=== PATIENT | male | born 2000 | race Caucasian/White ===

== ENCOUNTER 2019-01-19 18:41 | Emergency (ER) | payer BC ==
[~2019-01-19] VITALS: Ht 175.3 cm; Wt 65.8 kg
[2019-01-19 18:55] VITALS: BP 109/47
--- NOTE | 2019-01-19 18:59 | PHYS DOC ---
Past History Past Medical History: No Pertinent History Past Surgical History: No Surgical History Smoking: Non-smoker Alcohol Use: None Drug Use: None Adult General Chief Complaint Chief Complaint: BACK PAIN OR INJURY HPI HPI Patient is a 18-year-old male presents complaining of right-sided back pain that started when he woke up this morning. Increased pain with movement. Patient was given Azo by his girlfriend with no improvement in the pain. No loss of bowel or bladder control. The urine did turn the expected orange a shred collar after being administered the Azo. There was no blood in the urine before hand. No pain with urination. No fever. No nausea or vomiting. Pain is moderate in intensity.[] Review of Systems Review of Systems Constitutional: Denies fever or chills [] Eyes: Denies change in visual acuity, redness, or eye pain [] HENT: Denies nasal congestion or sore throat [] Respiratory: Denies cough or shortness of breath [] Cardiovascular: No chest pain or palpitations[] GI: Denies abdominal pain, nausea, vomiting, bloody stools or diarrhea [] : Denies dysuria or hematuria [] Musculoskeletal: See history of present illness[] Integument: Denies rash or skin lesions [] Neurologic: Denies headache, focal weakness or sensory changes [] Endocrine: Denies polyuria or polydipsia [] All other systems were reviewed and found to be within normal limits, except as documented in this note. Physical Exam Physical Exam Constitutional: Well developed, well nourished, no acute distress, non-toxic ap pearance. [] HENT: Normocephalic, atraumatic, bilateral external ears normal, oropharynx moist, no oral exudates, nose normal. [] Eyes: PERRLA, EOMI, conjunctiva normal, no discharge. [] Neck: Normal range of motion, no tenderness, supple, no stridor. [] Cardiovascular:Heart rate regular rhythm, no murmur [] Lungs & Thorax: Bilateral breath sounds clear to auscultation [] Abdomen: Bowel sounds normal, soft, no tenderness, no masses, no pulsatile masses. [] Skin: Warm, dry, no erythema, no rash. [] Back: Tenderness to palpation over the left-sided paraspinal musculature. No midline tenderness. No step-off or crepitus. Full active range of motion. Normal gait. No CVA tenderness. [] Extremities: No tenderness, no cyanosis, no clubbing, ROM intact, no edema. [] Neurologic: Alert and oriented X 3, normal motor function, normal sensory function, no focal deficits noted. [] Psychologic: Affect normal, judgement normal, mood normal. [] EKG EKG [] Radiology/Procedures Radiology/Procedures [] Course & Med Decision Making Course & Med Decision Making Pertinent Labs and Imaging studies reviewed. (See chart for details) ED course: Patient arrived, was placed in bed, and tolerated exam well. He was not writhing around at any point during his emergency department stay like this was a kidney stone. He did get relief with the Toradol. Findings and plan were discussed with the patient voiced understanding. All questions were answered. He was discharged in improved condition. Medical decision making: Given the paucity of red cells in the urine, physical exam findings, and lack of improvement with Azo, do not believe this to be a kidney stone. Her is no evidence of pyelonephritis. We will treat for m usculoskeletal back pain. Imaging is not indicated at this time utilizing the choosing wisely guidelines.[] Dragon Disclaimer Dragon Disclaimer This electronic medical record was generated, in whole or in part, using a voice recognition dictation system. Departure Departure: Impression: Primary Impression: Right-sided back pain Disposition: 01 HOME, SELF-CARE Condition: IMPROVED Referrals: PCP,NO (PCP) Patient Instructions: Back Pain, Adult Additional Instructions: Follow-up with your regular doctor in 2 days. If you do not have regular doctor list of local clinics will be provided. Do not use any more of the Azo. Take the medication as prescribed. Return to the ER if worsening pain, fever of more than 101, loss of bowel or bladder control, or any other concerns. Scripts Orphenadrine Citrate (ORPHENADRINE CITRATE) 100 Mg Tablet.er 100 MG PO BID for BACK PAIN, #20 TAB.SR Prov: LORI MANN DO 01/19/19 Meloxicam (MELOXICAM) 7.5 Mg Tablet 7.5 MG PO DAILY for PAIN, #20 TAB Prov: LORI MANN DO 01/19/19 Problem Qualifiers Primary Impression: Right-sided back pain Back pain location: low back pain Chronicity: acute Sciatica presence: without sciatica Qualified Codes: M54.5 - Low back pain LORI MANN DO Jan 19, 2019 18:59
[2019-01-19] MEDS ORDERED: KETOROLAC 30 MG/ML VIAL. IM ONE (19:00)
[2019-01-19 19:52] LABS: CLARITY,URINE CLEAR; COLOR,URINE ORANGE
[2019-01-19 19:55] LABS: BACTERIA,URINE 0 /HPF (0-FEW); GRANULAR CASTS,URINE OCC /HPF; HYALINE CASTS, URINE OCC /HPF; SQUAMOUS EPITHELIAL CELL,UR OCC /LPF; WBC,URINE OCC /HPF (0-4)
[2019-01-19] MEDS ORDERED: MELO7.5T29 PO (20:02)
[2019-01-19] MEDS ORDERED: ORPH-16 PO (20:02)
== END 2019-01-19 20:10 | disposition home or self-care (01) ==
LOC: ER 18:41
DX: M54.5 Low back pain (principal)
CPT/HCPCS: 81001; 96372; 99283; J1885

== ENCOUNTER 2019-08-16 00:32 | Emergency (ER) | payer BC ==
[~2019-08-16] VITALS: Ht 175.3 cm; Wt 65.0 kg
[2019-08-16 00:32] VITALS: BP 145/86
[~2019-08-16 00:32] MED LIST: MELO7.5T29 PO; ORPH-16 PO
[2019-08-16] MEDS ORDERED: ALBUTEROL SULFATE 2.5 MG/3 ML NEBU. NEB ONE (00:45)
[2019-08-16] MEDS ORDERED: predniSONE 20 MG TABLET PO ONE (00:45)
--- NOTE | 2019-08-16 00:50 | PHYS DOC ---
Past History Past Medical History: Asthma Past Surgical History: No Surgical History Smoking: Non-smoker Alcohol Use: None Drug Use: None General Adult EDM: Chief Complaint: ASTHMA HPI: HPI: Patient is a 19 year old male who presents for evaluation of shortness of air and wheezing. Patient has a known history of asthma but is out of his inhaler and home nebulizer treatment. Symptoms been progressing over the past several hours. Patient is a mild to early moderate distress on arrival. Vital signs are otherwise stable and he was oxygenating well. Patient has no other significant past medical history. No reported significant cough, fever or chills Review of Systems: Review of Systems: Constitutional: Denies fever or chills Eyes: Denies change in visual acuity HENT: Denies nasal congestion or sore throat Respiratory: Denies cough but has wheezing and shortness of breath Cardiovascular: Denies chest pain or edema GI: Denies abdominal pain, nausea, vomiting, bloody stools or diarrhea : Denies dysuria Musculoskeletal: Denies back pain or joint pain Integument: Denies rash Neurologic: Denies headache, focal weakness or sensory changes Endocrine: Denies polyuria or polydipsia Lymphatic: Denies swollen glands Psychiatric: Denies depression or anxiety Heart Score: Risk Factors: Risk Factors: DM, Current or recent (<one month) smoker, HTN, HLP, family history of CAD, obesity. Risk Scores: Score 0 - 3: 2.5% MACE over next 6 weeks - Discharge Home Score 4 - 6: 20.3% MACE over next 6 weeks - Admit for Clinical Observation Score 7 - 10: 72.7% MACE over next 6 weeks - Early Invasive Strategies Current Medications: Current Meds: Current Medications Medications (Trade) Dose Ordered Sig/Priti Start Time Stop Time Status Last Admin Dose Admin Albuterol Sulfate (Ventolin) 2.5 mg 1X ONCE 08/16/19 00:45 08/16/19 00:46 UNV Prednisone (Prednisone) 60 mg 1X ONCE 08/16/19 00:45 08/16/19 00:46 UNV Allergies: Allergies: Allergies Coded Allergies Type Severity Reaction Last Updated Verified No Known Drug Allergies 01/19/19 No Physical Exam: PE: Constitutional: Well developed, well nourished, mild acute distress, non-toxic appearance. [] HENT: Normocephalic, atraumatic, bilateral external ears normal, oropharynx moist, no oral exudates, nose normal. [] Eyes: PERRL, EOMI, conjunctiva normal, no discharge. [] Neck: Normal range of motion, no tenderness, supple, no stridor. [] Cardiovascular:Heart rate regular rhythm, no murmur [] Lungs & Thorax: Slightly diminished breath sounds bilaterally, wheezing worse right side over left, some tachypnea and mild conversational dyspnea present [] Abdomen: Bowel sounds normal, soft, no tenderness, no masses, no pulsatile masses. [] Skin: Warm, dry, no erythema, no rash. [] Back: No tenderness, no CVA tenderness. [] Extremities: No tenderness, no cyanosis, no clubbing, ROM intact, no edema. [] Neurologic: Alert and oriented X 3, normal motor function, normal sensory func tion, no focal deficits noted. [] Psychologic: Affect normal, judgement normal, mood normal. [] Current Patient Data: Vital Signs: Vital Signs Date Time Temp Pulse Resp B/P (MAP) Pulse Ox O2 Delivery O2 Flow Rate FiO2 08/16/19 00:32 98.6 57 20 145/86 (105) 100 Room Air EKG: EKG: [] Radiology/Procedures: Radiology/Procedures: [[place] [address] IMAGING REPORT Signed PATIENT: MICK SLATERCOUNT: [id number] : 2000 LOCATION: ER AGE: 19 SEX: M EXAM STATUS: REG ER ORD. PHYSICIAN: BARRY FARIA DO REASON: short of air, cough PROCEDURE: CHEST PA & LATERAL INDICATION: Reason: short of air, cough / Spl. Instructions: / History: COMPARISON: None. FINDINGS: 2 view of chest obtained. No focal airspace consolidation. There are some suspected calcified granulomas of the lungs. Cardiac silhouette unremarkable IMPRESSION: * No focal airspace consolidation or edema. Electronically signed by: Whitley Champagne MD (08/16/2019 1:23 AM) [id number] DICTATED AND SIGNED BY: WHITLEY CHAMPAGNE MD DATE: 08/16/19 0123 CC: PCP,NO; BARRY FARIA DO ~ ] Course & Med Decision Making: Course & Med Decision Making Pertinent Labs and Imaging studies reviewed. (See chart for details) [] Abby Disclaimer: Abby Disclaimer: This electronic medical record was generated, in whole or in part, using a voice recognition dictation system. 0129 stable, feeling much better at this time. Chest x-ray is clear and does not show evidence of pneumonia, pneumothorax etc. Prescription for Medrol Dosepak, albuterol metered-dose inhaler as well as albuterol neb treatment given. Close follow-up recommended. Patient to return if worse Departure Departure: Impression: Primary Impression: Asthma exacerbation Qualified Codes: J45.21 - Mild intermittent asthma with (acute) exacerbation Disposition: HOME/RESIDENCE PRIOR TO ADM Condition: STABLE Referrals: PCP,ISIDRO (PCP) VLADIMIR KIRKLAND MD Patient Instructions: Asthma, Adult Additional Instructions: Take medication as directed, see your doctor as needed in the next several days, return if worsen Scripts Albuterol Sulfate (PROAIR HFA INHALER) 8.5 Gm Hfa.aer.ad 2 PUFF IH PRN Q4-6HRS PRN for wheezing for 21 Days, #1 INHALER 0 Refills Prov: BARRY FARIA DO 08/16/19 Albuterol Sulfate (ALBUTEROL SULFATE NEB SOLN) 1.25 Mg/3 Ml Vial.neb 1 VIAL NEB Q6HRS for asthma, #150 ML Prov: BARRY FARIA DO 08/16/19 Methylprednisolone (MEDROL) 4 Mg Tab.ds.pk 1 PKG PO UD for asthma, #1 PKG Prov: BARRY FARIA DO 08/16/19 Justification of Admission: Justification of Admission: Justification of Admission Dx: N/A BARRY FARIA DO Aug 16, 2019 00:50
--- NOTE | 2019-08-16 01:26 | RAD ---
INDICATION: Reason: short of air, cough / Spl. Instructions: / History: COMPARISON: None. FINDINGS: 2 view of chest obtained. No focal airspace consolidation. There are some suspected calcified granulomas of the lungs. Cardiac silhouette unremarkable IMPRESSION: * No focal airspace consolidation or edema. Electronically signed by: Kaushal Shore MD (08/16/2019 1:23 AM) [id number]
[2019-08-16] MEDS ORDERED: ALBU1.25 NEB (01:32)
[2019-08-16] MEDS ORDERED: ALBU2.5V8 IH (01:32)
[2019-08-16] MEDS ORDERED: METH4TAB2 PO (01:32)
== END 2019-08-16 01:35 | disposition home or self-care (01) ==
LOC: ER 00:32
DX: J45.21 Mild intermittent asthma with (acute) exacerbation (principal)
CPT/HCPCS: 71046; 94640; 99283; J7512; J7613

== ENCOUNTER 2020-05-12 12:09 | Emergency (ER) | payer BC ==
[~2020-05-12] VITALS: Ht 175.3 cm; Wt 65.0 kg
[~2020-05-12 12:09] MED LIST changes: +ALBU1.25 NEB; +ALBU2.5V8 IH; +METH4TAB2 PO
--- NOTE | 2020-05-12 12:24 | PHYS DOC ---
Past History Past Medical History: Asthma Past Surgical History: No Surgical History Smoking: Non-smoker Alcohol Use: None Drug Use: None General Adult EDM: Chief Complaint: DRUG ABUSE HPI: HPI: 19-year-old male past medical history of asthma, presents to the ED with his biological mother, complaints of swelling to his forehead. Reports using "acid" last night stating he put "two strips" on his tongue. Recalls walking into and out of the home where he received the LSD, with his girlfriend, but does not recall how he got home or sustained a bruise to his left forehead. Father also present in ED and states patient was in his bed with his girlfriend. Girlfriend has never harmed pt. Pt reports routine marijuana use but does not recall marijuana, alcohol or other drug use last night. C/o "I feel like crap," described as body aches and nausea. Upon review of systems does report polyuria and polydipsia. Review of Systems: Review of Systems: Constitutional: Denies fever or chills Eyes: Denies change in visual acuity HENT: Denies nasal congestion or sore throat Respiratory: Denies cough or shortness of breath Cardiovascular: Denies chest pain or edema GI: Denies abdominal pain,vomiting, bloody stools or diarrhea : Denies dysuria or hematuria Musculoskeletal: Denies back pain or joint pain Integument: Denies rash or diaphoresis Neurologic: Denies headache, focal weakness or sensory changes Endocrine: Denies polyuria or polydipsia Lymphatic: Denies swollen glands Psychiatric: Denies depression or anxiety, suicidal homicidal ideations, denies paranoia, visual or auditory hallucinations Allergies: Allergies: Allergies Coded Allergies Type Severity Reaction Last Updated Verified No Known Drug Allergies 01/19/19 No Physical Exam: PE: Constitutional: No acute distress, unkept disheveled appearance HENT: Left forehead hematoma bruising, acne. No septal hematoma, no oral bleeding Eyes: PERRLA, EOMI, conjunctiva normal, no discharge. Neck: Normal range of motion, supple, Cardiovascular: S1/2 present, regular rhythm Lungs & Thorax: Speaking in full sentences, bilateral equal chest rise, no tachypnea or increased work of breathing Abdomen: soft, no tenderness, Skin: Warm, dry, no erythema, no rash. [] Back: No midline tenderness or step-offs, no CVA tenderness. [] Extremities: No tenderness, no cyanosis, no lower extremity edema Neurologic: Alert and oriented X 3, normal motor function, normal sensory function, no focal deficits noted. [] Psychologic: Affect normal, judgement normal, mood normal. [] Nexus C-spine criteria are negative: There is no post midline tenderness, the patient is not intoxicated, there is a normal level of alertness, there are no focal neurologic deficits and there are no distracting injuries. EKG: EKG: Sinus rhythm at 65 bpm, no axis deviation, normal intervals, no T wave inversions, no ST elevations or ST depressions, no active chest pain Radiology/Procedures: Radiology/Procedures: IMAGING REPORT Signed PATIENT: MICK SLATERUNT: [id number] : 2000 LOCATION: ER AGE: 19 SEX: M EXAM STATUS: REG ER ORD. PHYSICIAN: LUCILA MCKENZIE DO REASON: ams PROCEDURE: CT HEAD WO CONTRAST EXAM: CT head without contrast INDICATION: Altered mental status COMPARISON: None TECHNIQUE: Axial CT imaging through the head without intravenous contrast. One or more of the following individualized dose reduction techniques were utilized for this examination: 1. Automated exposure control 2. Adjustment of the mA and/or kV according to patient size 3. Use of iterative reconstruction technique. FINDINGS: The ventricles and sulci are normal. Daniels-white matter differentiation is maintained. There is no intracranial hemorrhage, acute infarct, or mass lesion. Basal cisterns are clear. The calvarium is intact. The visualized paranasal sinuses and mastoid air cells are clear. Globes and orbits are intact.. IMPRESSION: No acute intracranial abnormality. Electronically signed by: Leanne Cabral MD (05/12/2020 12:45 PM) [id number] DICTATED AND SIGNED BY: LEANNE CABRAL MD DATE: 05/12/20 1244 CC: PCP,ISIDRO; LUCILA MCKENZIE DO ~MTH0 0 IMAGING REPORT Signed PATIENT: MICK SLATERCOUNT: [id number] : 2000 LOCATION: ER AGE: 19 SEX: M EXAM STATUS: REG ER ORD. PHYSICIAN: LUCILA MCKENZIE DO REASON: ams PROCEDURE: CT CERVICAL SPINE WO CONTRAST EXAM: Cervical spine CT without contrast. HISTORY: Trauma. TECHNIQUE: Computed tomographic images of the cervical spine were obtained without contrast. Multiplanar reformatting was performed. *One or more of the following individualized dose reduction techniques were utilized for this examination: 1. Automated exposure control. 2. Adjustment of the mA and/or kV according to patient size. 3. Use of iterative reconstruction technique. COMPARISON: None. FINDINGS: There is mild cervical kyphosis. There is no significant listhesis. There is no fracture. There is no suspicious osseous lesion. There is minimal maxillary sinus mucosal thickening. The mastoid air cells are clear. The temporomandibular joints are intact. There is no significant foraminal or central canal stenosis. 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 The lung apices are unremarkable. The airways midline and widely patent. There are incidental unerupted molars. IMPRESSION: No acute finding. Electronically signed by: Marsha Holder MD (05/12/2020 12:57 PM) [id number] DICTATED AND SIGNED BY: MARSHA HOLDER MD DATE: 05/12/20 1255 CC: PCP,NO; LUCILA MCKENZIE DO ~MTH0 0 IMAGING REPORT Signed PATIENT: MICK SLATER JACCOUNT: [id number] : 2000 LOCATION: ER AGE: 19 SEX: M EXAM STATUS: REG ER ORD. PHYSICIAN: LUCILA MCKENZIE DO REASON: confused PROCEDURE: PORTABLE CHEST 1V EXAM: Chest, single view. HISTORY: Confusion. COMPARISON: 08/16/2019 FINDINGS: A frontal view of the chest is obtained. There is no infiltrate, pleural effusion or pneumothorax. The heart is normal in size. There are calcified granulomas. IMPRESSION: No acute pulmonary finding. Electronically signed by: Marsha Holder MD (05/12/2020 12:44 PM) [id number] DICTATED AND SIGNED BY: MARSHA HOLDER MD DATE: 05/12/20 1243 CC: PCP,NO; LUCILA MCKENZIE DO ~MTH0 0 IMAGING REPORT Signed PATIENT: MICK SLATER ACCOUNT: [id number] : 2000 LOCATION: ER AGE: 19 SEX: M EXAM STATUS: REG ER ORD. PHYSICIAN: LUCILA MCKENZIE DO REASON: FALL, OVERDOSE PROCEDURE: CT MAXILLOFACIAL WO CONTRAST EXAM: Maxillofacial bone CT without contrast. HISTORY: Trauma. TECHNIQUE: Computed tomographic images of the maximal facial bones were obtained without contrast. *One or more of the following individualized dose reduction techniques were utilized for this examination: 1. Automated exposure control. 2. Adjustment of the mA and/or kV according to patient size. 3. Use of iterative reconstruction technique. COMPARISON: None. FINDINGS: No displaced fracture is seen. The orbits are unremarkable. The ostiomeatal units are patent. The nasal septum is midline. There are incidental unerupted maxillary and mandibular molars. The temporomandibular joints are intact. The visualized portions of the brain and calvarium are unremarkable. There is no acute finding involving the visualized proximal cervical spine. IMPRESSION: No acute finding. Electronically signed by: Marsha Holder MD (05/12/2020 12:59 PM) [id number] DICTATED AND SIGNED BY: MARSHA HOLDER MD DATE: 05/12/20 1257 CC: PCP,NO; LUCILA MCKENZIE DO ~MTH0 0 Heart Score: C/O Chest Pain: No Risk Factors: Risk Factors: DM, Current or recent (<one month) smoker, HTN, HLP, family history of CAD, obesity. Risk Scores: Score 0 - 3: 2.5% MACE over next 6 weeks - Discharge Home Score 4 - 6: 20.3% MACE over next 6 weeks - Admit for Clinical Observation Score 7 - 10: 72.7% MACE over next 6 weeks - Early Invasive Strategies Course & Med Decision Making: Course & Med Decision Making Pertinent Labs and Imaging studies reviewed. (See chart for details) Concern for substance abuse and amnesia -forehead hematoma, unsure of mechanism of injury-feels safe at home does not suspect any abuse. Patient does report polyuria and polydipsia, diabetes runs in his family. Glucose 216 with proteinuria. Understands to follow-up with primary care physician for diabetes evaluation. Labs show rhabdomyolysis and kidney injury/no prior lab for baseline comparison-I offered admission for IV fluids, pain control and new onset diabetes testing, patient declines. Is tolerating oral intake. Father at bedside during these discussions. Will discharge home with strict ED return precautions were given for persistent nausea or vomiting, severe headache, or neurologic deficits. Encouraged urgent outpatient follow-up with PMD. Life- threatening processes were considered but are low suspicion at this time, given history, physical exam and ED workup. Pt was educated on all prescription medications and adverse effects. All patient's questions were answered and pt was stable at time of discharge. Life/limb-threatening differential includes but is not limited to, end organ damage/sepsis, trauma/abuse/neglect, neurologic deficit, alcohol/drug ingestion, toxidrome, suicidal/homicidal ideations plans or attempts, psychosis or mental illness resulting in self neglect and inability to care for self. I spoken with the patient and her caregivers. I explained the patient's condition, diagnoses and treatment plan based on the information available to me at this time. I have answered the patient and her caregiver's questions and addressed any concerns. The patient and her caregivers have a good understanding of patient's diagnosis, condition and treatment plan as can be expected at this point. Vital signs have been stable. Patient's condition is stable and appropriate for discharge from the emergency department. Patient will pursue further outpatient evaluation with primary care physician or other designated or consulting physician as outlined in the discharge instructions. The patient and/or caregivers are agreeable to this plan of care and follow-up instructions have been explained in detail. The patient and/or caregivers have received these instructions in written form and have expressed an understanding of the discharge instructions. The patient and/or caregivers are aware that any significant change of condition or worsening of symptoms should prompt immediate return to this or the closest emergency department or call to 911. Abby Disclaimer: Abby Disclaimer: This electronic medical record was generated, in whole or in part, using a voice recognition dictation system. Departure Departure: Impression: Primary Impression: Overdose of LSD Additional Impressions: Hyperglycemia ABHISHEK (acute kidney injury) Rhabdomyolysis Traumatic hematoma of forehead Disposition: 01 DC HOME SELF CARE/HOMELESS Condition: STABLE Referrals: PCP,NO (PCP) Follow-up for hyperglycemia evaluation, glucose in ED was 216 concerning for diabetes FOLLOW UP WITH FAMILY MEDICINE: [facility], [address] [address] Patient Instructions: Acute Kidney Injury, Hyperglycemia, Scalp Hematoma Additional Instructions: EMERGENCY DEPARTMENT GENERAL DISCHARGE INSTRUCTIONS Thank you for coming to [facility] (ED) today and trusting us with you care. We trust that you had a positivie experience in our Emergency Department. If you wish to speak to the department management, you may call the director at [phone]. YOUR FOLLOW UP INSTRUCTIONS ARE FOLLOWS: 1. Do you have a private Doctor? If you do not have a private doctor, please ask for a resource list of physicians or clinics that may be able to assist you with follow up care. 2. The Emergency Physician has interpreted your x-rays. The X-Ray specialist will also review them. If there is a change in the findings, you will be notified in 48 hours when at all possible. 3. A lab test or culture has been done, your results will be reviewed and you will be notified if you need a change in treatment. ADDITIONAL INSTRUCTIONS AND INFORMATION: 1. Your care today has been supervised by a physician who is specially trained in emergency care. Many problems require more than one evaluation for a complete diagnosis and treatment. We recommend that you schedule your follow up appointment as recommended to ensure complete treatment of you illness or injury. If you are unable to obtain follow up care and continue to have a problem, or if your condition worsens, we recommend that you return to the ED. 2. We are not able to safely determine your condition over the phone nor are we able to give sound medical advice over the phone. For these safety reasons, if you call for medical advice we will ask you to come to the ED for further evaluation. 3. If you have any questions regarding these discharge instructions please call the ED at [phone]. SAFETY INFORMATION: In the interest of safety, wellness, and injury prevention; we encourage you to wear your sealbelt, if you smoke; quite smoking, and we encourage family to use a protective helmet for bicycling and other sporting events that present an increased risk for head injury. IF YOUR SYMPTOMS WORSEN OR NEW SYMPTOMS DEVELOP, OR YOU HAVE CONCERNS ABOUT YOUR CONDITION; OR IF YOUR CONDITION WORSENS WHILE YOU ARE WAITING FOR YOUR FOLLOW UP APPOINTMENT; EITHER CONTACT YOUR PRIMARY CARE DOCTOR, THE PHYSICIAN WHOSE NAME AND NUMBER YOU WERE GIVEN, OR RETURN TO THE ED IMMEDIATELY. LUCILA MCKENZIE DO May 12, 2020 12:24
[2020-05-12] MEDS ORDERED: IV NORMAL SALINE 1,000ML 1,000 ML IV SCH (12:30)
[2020-05-12 12:33] LABS: BASO # 0.1 x10^3/uL (0.0-0.2); BASO % 1 % (0-3); EOS % 0 % (0-3); HEMATOCRIT 46.4 % (39.0-53.0); HEMOGLOBIN 15.5 g/dL (13.0-17.5); LYMPH # 2.8 x10^3/uL (1.0-4.8); LYMPH % 23 % (24-48); MEAN CORPUSCULAR HEMOGLOBIN 29 pg (25-35); MEAN CORPUSCULAR HGB CONC 33 g/dL (31-37); MEAN CORPUSCULAR VOLUME 87 fL (79-100); MONO # 0.5 x10^3/uL (0.0-1.1); MONO % 4 % (0-9); NEUT # 8.6 x10^3uL (1.8-7.7); NEUT % 71 % (31-73); PLATELET COUNT 451 x10^3/uL (140-400); RED BLOOD COUNT 5.34 x10^6/uL (4.30-5.70); WHITE BLOOD COUNT 12.1 x10^3/uL (4.0-11.0)
[2020-05-12 12:39] LABS: CALCIUM 9.3 mg/dL (8.5-10.1); CREATININE 1.4 mg/dL (0.7-1.3); GFR 64.6; POTASSIUM 3.9 mmol/L (3.5-5.1)
[2020-05-12 12:43] LABS: ACETAMIN < 2 mcg/mL (10-30); SALIC < 2.8 mg/dL (2.8-20.0)
[2020-05-12 12:44] LABS: ETHANOL < 10 mg/dL (0-10)
--- NOTE | 2020-05-12 12:46 | RAD ---
EXAM: Chest, single view. HISTORY: Confusion. COMPARISON: 08/16/2019 FINDINGS: A frontal view of the chest is obtained. There is no infiltrate, pleural effusion or pneumo thorax. The heart is normal in size. There are calcified granulomas. IMPRESSION: No acute pulmonary finding. Electronically signed by: Marsha Redman MD (05/12/2020 12:44 PM) [id number]
--- NOTE | 2020-05-12 12:48 | RAD ---
EXAM: CT head without contrast INDICATION: Altered mental status COMPARISON: None TECHNIQUE: Axial CT imaging through the head without intravenous contrast. One or more of the following individualized dose reduction techniques were utilized for this examinat ion: 1. Automated exposure control 2. Adjustment of the mA and/or kV according to patient size 3. Use of iterative reconstruction technique. FINDINGS: The ventricles and sulci are normal. Daniels-white matter differentiation is maintained. There is no in tracranial hemorrhage, acute infarct, or mass lesion. Basal cisterns are clear. The calvarium is intact. The visualized paranasal sinuses and mastoid air cells are clear. Globes and orbits are intact.. IMPRESSION: No acute intracranial abnormality. Electronically signed by: Leanne Cabral MD (05/12/2020 12:45 PM) [id number]
--- NOTE | 2020-05-12 13:00 | RAD ---
EXAM: Cervical spine CT without contrast. HISTORY: Trauma. TECHNIQUE: Computed tomographic images of the cervical spine were obtained without contrast. Multipla erika reformatting was performed. *One or more of the following individualized dose reduction techniques were utilized for this examina tion: 1. Automated exposure control. 2. Adjustment of the mA and/or kV according to patient size. 3. Use of iterative reconstruction technique. COMPARISON: None. FINDINGS: There is mild cervical kyphosis. There is no significant listhesis. There is no fracture. T here is no suspicious osseous lesion. There is minimal maxillary sinus mucosal thickening. The mastoi d air cells are clear. The temporomandibular joints are intact. There is no significant foraminal or central canal stenosis. 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 The lung apices are unremarkable. The airways midline and widely patent. There are incidental unerupted molars. IMPRESSION: No acute finding. Electronically signed by: Marsha Redman MD (05/12/2020 12:57 PM) [id number]
--- NOTE | 2020-05-12 13:01 | RAD ---
EXAM: Maxillofacial bone CT without contrast. HISTORY: Trauma. TECHNIQUE: Computed tomographic images of the maximal facial bones were obtained without contrast. *One or more of the following individualized dose reduction techniques were utilized for this examina tion: 1. Automated exposure control. 2. Adjustment of the mA and/or kV according to patient size. 3. Use of iterative reconstruction technique. COMPARISON: None. FINDINGS: No displaced fracture is seen. The orbits are unremarkable. The ostiomeatal units are paten t. The nasal septum is midline. There are incidental unerupted maxillary and mandibular molars. The t emporomandibular joints are intact. The visualized portions of the brain and calvarium are unremarkab le. There is no acute finding involving the visualized proximal cervical spine. IMPRESSION: No acute finding. Electronically signed by: Marsha Redman MD (05/12/2020 12:59 PM) [id number]
--- NOTE | 2020-05-12 13:31 | EKG ---
[address] [address] Test Date: 2020-05-12 Test Time: 12:21:04 Pat Name: MICK SLATER Department: Room: Gender: M [facility] Manager: JOSE LUIS : 2000 Requested By: LUCILA MCKENZIE Order Number: [id number] Reading MD: Measurements Intervals Archer Rate: 65 P: 111 ID: [id number] QRS: 76 QRSD: 100 T: 44 QT: 398 QTc: 419 Interpretive Statements SINUS RHYTHM INCOMPLETE RIGHT BUNDLE BRANCH BLOCK NO SPECIFIC ECG ABNORMALITIES RI6.02 No previous ECG available for comparison
[2020-05-12] MEDS ORDERED: IV NORMAL SALINE 1,000ML 1,000 ML IV ONE (14:30)
[2020-05-12 14:39] LABS: BARBITURATES NEG (NEG); BENZODIAZEPINES NEG (NEG); CANNABINOIDS POS (NEG); COCAINE NEG (NEG); METHADONE NEG (NEG); OPIATES NEG (NEG); PHENCYCLIDINE NEG (NEG)
[2020-05-12 14:40] LABS: AMPHETAMINE/METHAMPHETAMINE NEG (NEG)
[2020-05-12 15:02] LABS: BACTERIA,URINE 0 /HPF (0-FEW); BILIRUBIN,URINE NEG (NEG); CLARITY,URINE CLEAR; COLOR,URINE COLORLESS; GLUCOSE,URINE NEG (NEG); NITRITE,URINE NEG (NEG); RBC,URINE 0 /HPF (0-2); UROBILINOGEN,URINE 0.2 mg/dL (0.2 mg/dL); WBC,URINE 0 /HPF (0-4)
[2020-05-12 15:30] VITALS: BP 143/85
== END 2020-05-12 16:25 | disposition home or self-care (01) ==
LOC: ER 12:09
DX: S00.83XA Contusion of other part of head, initial encounter (principal); T40.8X1A Poisoning by lysergide [LSD], accidental (unintentional), initial encounter; R60.0 Localized edema; R11.0 Nausea; M62.82 Rhabdomyolysis; N17.9 Acute kidney failure, unspecified; R73.9 Hyperglycemia, unspecified; J45.909 Unspecified asthma, uncomplicated; X58.XXXA Exposure to other specified factors, initial encounter; Y93.89 Activity, other specified; Y92.89 Other specified places as the place of occurrence of the external cause; Y99.8 Other external cause status
CPT/HCPCS: 70450; 70486; 71045; 72125; 80048; 80307; 80329; 81001; 82550; 83690; 84484; 85025; 85610; 85730; 93005; 96360; 96361; 99285; G0480; J7030; 36415; 83930